=== PATIENT | female | born 1995 | race African-American/Black ===

== ENCOUNTER 2023-01-23 17:57 | Emergency (ER) | payer OTHER ==
[~2023-01-23] VITALS: Ht 160 cm; Wt 68.2 kg
[2023-01-23 18:03] VITALS: BP 134/84; PULSE 88; RESP 18; TEMP 98.2
[2023-01-24 08:07] LABS: HEPATITIS C AB (EIA) Non Reactive (Non Reactive)
== END 2023-01-23 19:30 | disposition home or self-care (01) ==
LOC: EMS 17:59
DX: S61.032A Puncture wound without foreign body of left thumb without damage to nail, initial encounter (principal); Z88.8 Allergy status to other drugs, medicaments and biological substances; Z90.49 Acquired absence of other specified parts of digestive tract; Z98.890 Other specified postprocedural states; W46.1XXA Contact with contaminated hypodermic needle, initial encounter; Y93.89 Activity, other specified; Y92.89 Other specified places as the place of occurrence of the external cause; Y99.8 Other external cause status
CPT/HCPCS: 86706; 86803; 99283